=== PATIENT | female | born 1955 | race Caucasian/White ===

== ENCOUNTER → 2017-11-28 | Outpatient (CLI) | payer MEDICAID ==
--- NOTE | 2017-11-28 09:02 | US ---
HISTORY: Abnormal LFTs Study: Liver ultrasound: Multiplanar ultrasonographic examination of the liver was performed Comparison: None Findings: On the images submitted to me the liver is of minimally increased echogenicity felt to be on the basi s of minimal fatty infiltration. Vascular flow was normal direction. No evidence of intrahepatic bi liary duct dilatation is present. The patient is status post cholecystectomy. The common bile duct is normal at 4.8 mm. The visualize d right kidney is normal measuring 9.8 cm in length by 5.1 by 5.2 cm. IMPRESSION: 1. Minimal fatty infiltration of the liver. 2. Patient is status post cholecystectomy. Reported By:
== END ==
LOC: RAD 08:11
PROVIDERS: ATTEND Internal Medicine Gastroenterology
DX: R94.5 Abnormal results of liver function studies (principal)
CPT/HCPCS: 76705